=== PATIENT | male | born 1965 | race Hispanic/Latino ===

== ENCOUNTER 2017-09-16 15:49 | Outpatient (RCR) | payer BC ==
[~2017-09-16 15:49] MED LIST: ASPIRIN EC81 MG PO; ATORVASTATIN CA20 MG PO; COZAAR100 MG PO; K DUR10 MEQ PO; LOSARTAN-HCTZ1 EAC1; PLAVIX75 MG PO; Z.2.LOSARTAN-HCTZ1 E PO
== END 2017-09-22 ==
LOC: PT 15:49
PROVIDERS: ATTEND Specialist
DX: S43.431D Superior glenoid labrum lesion of right shoulder, subsequent encounter (principal); M25.511 Pain in right shoulder; M25.611 Stiffness of right shoulder, not elsewhere classified; M62.81 Muscle weakness (generalized)

== ENCOUNTER 2017-10-16 08:00 | Outpatient (RCR) | payer BC | END 2017-10-23 | LOC: PT 08:00 | PROVIDERS: ATTEND Specialist | DX: S43.431D Superior glenoid labrum lesion of right shoulder, subsequent encounter (principal); M25.511 Pain in right shoulder; M25.611 Stiffness of right shoulder, not elsewhere classified; M62.81 Muscle weakness (generalized) ==

== ENCOUNTER → 2017-11-24 | Day surgery (SDC) | payer BC ==
[2017-11-20 14:13] LABS: BASOPHILS # (AUTO) 0.1 (0.0-0.1); BASOPHILS % 0.9 % (0.0-1.0); EOSINOPHILS # (AUTO) 0.1 (0.0-0.4); EOSINOPHILS % 1.3 % (0.0-6.0); HEMATOCRIT 47.4 % (38.2-49.6); LYMPHOCYTES # (AUTO) 2.3 (1.0-3.2); LYMPHOCYTES % 27.9 % (18.0-39.1); MEAN CORPUSCULAR HEMOGLOBIN 26.4 pg (28-32); MEAN CORPUSCULAR HGB CONC 33.8 g/dL (31-35); MEAN CORPUSCULAR VOLUME 78.1 fL (81-99); MONOCYTES # (AUTO) 0.6 (0.2-0.8); MONOCYTES % 7.6 % (4.4-11.3); NEUTROPHILS # (AUTO) 5.1 (2.1-6.9); NEUTROPHILS % 62.1 % (38.7-80.0); PLATELET COUNT 202 x10e3/uL (140-360); RED BLOOD COUNT 6.07 x10e6/uL (4.3-5.7); RED CELL DISTRIBUTION WIDTH 12.6 % (11.7-14.4)
[2017-11-20 14:30] LABS: ANION GAP 15.4 mmol/L (8-16); BLOOD UREA NITROGEN 20 mg/dL (7-26); BUN/CREATININE RATIO 20 (6-25); CALCIUM 9.5 mg/dL (8.4-10.2); CARBON DIOXIDE 29 mmol/L (22-29); CHLORIDE 100 mmol/L (98-107); CREATININE, SERUM 1.02 mg/dL (0.72-1.25); EST GLOMERULAR FILTRATION RATE > 60 ML/MIN (60-); GLUCOSE 94 mg/dL (74-118); POTASSIUM 3.4 mmol/L (3.5-5.1); SODIUM 141 mmol/L (136-145)
[~2017-11-24] MED LIST changes: +BUPIVACAINE HCL 0.5% INJ 30 ML VIAL INJ ONE; +DEXAMETHASONE SOD PHOS INJ 4 MG/ML VIAL ONE; +EFFIENT10 MG PO; +EPHEDRINE SULFATE INJ 50 MG/10 ML SYR ONE; +EPINEPHRINE HCL INJ 1 MG/ML AMP ONE; +FENTANYL CITRATE/PF 100MCG/2 ML INJ ONE; +LIDOCAINE HCL 2% LOCAL INJ 5 ML SDV VIAL INJ ONE; +MIDAZOLAM HCL 2 MG/2 ML VIAL ONE; +ONDANSETRON HCL INJ 2 MG/ML VIAL ONE; +PROPOFOL IV EMULSION 10 MG/ML 20 ML VIAL ONE; +ROCURONIUM BROMIDE 10 MG/ML 5ML VIAL ONE; +SEVOFLURANE INHAL SOLN 250 ML PEN BTL ONE
[2017-11-24] MEDS: CEFAZOLIN SOD 1 GM VIAL ONE (10:04)
[2017-11-24 13:15] VITALS: BP 116/73
--- NOTE | 2017-11-24 14:20 | Operative Report ---
DATE OF PROCEDURE: November 24, 2017 SMELTING ENGINEER: Kb Martin PA-C The patient was brought to the operating room for induction of anesthesia. Throughout this case, my PA's assistance was necessary for retraction of soft tissue and positioning of the extremity. This allows for efficient and technically successful execution of the operation and is considered medically necessary. PREOPERATIVE DIAGNOSIS: Right shoulder labral tear. POSTOPERATIVE DIAGNOSIS: Right shoulder adhesive capsulitis. PROCEDURES 1. Right shoulder manipulation under anesthesia. 2. Arthroscopy. 3. Lysis of adhesions and subacromial decompression. INDICATIONS: The patient is a 52-year-old gentleman who has a long history of right shoulder pain. He has been treated with extensive conservative management. He continues to complain of pain and limited function. MRI shows a small labral tear. We have discussed the findings and options. The patient would like to proceed with more aggressive intervention. He has been through a left shoulder arthroscopy and had a good result. He states he understands the plan of care and wishes to proceed. DESCRIPTION OF PROCEDURE: The patient was brought to the operating room and placed under general anesthetic. He received a regional block and prophylactic antibiotics in the holding area. He was positioned in the beach chair position on the shoulder table. During positioning, it was noted that his shoulder had quite severely limited range of motion. I therefore performed a manipulation under anesthesia. There was profound release of the capsular tissue that was both visible and audible. A preoperative time out was performed. A standard posterior shoulder arthroscopy portal was established. As expected, there was a hemarthrosis. An anterior working portal was established in the rotator interval. The shoulder was thoroughly irrigated and the hemarthrosis was cleared. The articular surfaces of the glenohumeral joint were well preserved. The rotator cuff insertion was well preserved. The biceps tendon was intact. There was some hemorrhagic adhesions in the shoulder. A 4.5-mm shaver was introduced into the shoulder joint. The adhesions were debrided. The labrum was probed. The biceps tendon was stable at the supraglenoid tubercle. I did not see any significant tear of the posterior labrum when putting the scope into the anterior portal. The scope was then placed into the subacromial space. Extensive scar thickened bursa was debrided to visualize the bursal surface of the rotator cuff. There was a small partial thickness bursal surface tear of the anterior supraspinatus. This was gently debrided, but did not account for more than 20% of the thickness of the tendon. A subacromial bony decompression was performed. The subacromial space was opened up quite nicely. The arthroscopic instruments were then removed. All the incisions were closed with nylon stitches. A sterile bandage and an ultra sling were applied. The patient was extubated and transported to the recovery room in stable condition. Blood loss was about 20 mL. All needle and sponge counts were correct. Job#: [id number] DAX
== END | disposition home or self-care (01) ==
LOC: OR 08:48
PROVIDERS: ATTEND Specialist
DX: M75.111 Incomplete rotator cuff tear or rupture of right shoulder, not specified as traumatic (principal); S43.431A Superior glenoid labrum lesion of right shoulder, initial encounter; M75.01 Adhesive capsulitis of right shoulder; I10 Essential (primary) hypertension; N20.0 Calculus of kidney; X58.XXXA Exposure to other specified factors, initial encounter; Z01.810 Encounter for preprocedural cardiovascular examination; Z01.812 Encounter for preprocedural laboratory examination; Z79.82 Long term (current) use of aspirin; Z79.02 Long term (current) use of antithrombotics/antiplatelets; Z68.30 Body mass index [BMI] 30.0-30.9, adult; Z86.73 Personal history of transient ischemic attack (TIA), and cerebral infarction without residual deficits
CPT/HCPCS: 36415; 80048; 85025; 93005; J0171; J0690; J1100; J2001; J2250; J2405

== ENCOUNTER 2017-12-21 10:42 | Outpatient (RCR) | payer BC ==
[~2017-12-21 10:42] MED LIST changes: -BUPIVACAINE HCL 0.5% INJ 30 ML VIAL INJ ONE; -DEXAMETHASONE SOD PHOS INJ 4 MG/ML VIAL ONE; -EPHEDRINE SULFATE INJ 50 MG/10 ML SYR ONE; -EPINEPHRINE HCL INJ 1 MG/ML AMP ONE; -FENTANYL CITRATE/PF 100MCG/2 ML INJ ONE; -LIDOCAINE HCL 2% LOCAL INJ 5 ML SDV VIAL INJ ONE; -MIDAZOLAM HCL 2 MG/2 ML VIAL ONE; -ONDANSETRON HCL INJ 2 MG/ML VIAL ONE; -PROPOFOL IV EMULSION 10 MG/ML 20 ML VIAL ONE; -ROCURONIUM BROMIDE 10 MG/ML 5ML VIAL ONE; -SEVOFLURANE INHAL SOLN 250 ML PEN BTL ONE
== END 2017-12-23 ==
LOC: PT 10:42
PROVIDERS: ATTEND Specialist
DX: S43.431A Superior glenoid labrum lesion of right shoulder, initial encounter (principal); Z47.89 Encounter for other orthopedic aftercare; M75.41 Impingement syndrome of right shoulder; M25.511 Pain in right shoulder; M25.611 Stiffness of right shoulder, not elsewhere classified; M62.81 Muscle weakness (generalized)

== ENCOUNTER 2018-01-20 17:00 | Outpatient (RCR) | payer BC | END 2018-01-22 | LOC: PT 17:00 | PROVIDERS: ATTEND Specialist | DX: S43.431A Superior glenoid labrum lesion of right shoulder, initial encounter (principal); Z47.89 Encounter for other orthopedic aftercare; M75.41 Impingement syndrome of right shoulder; M25.511 Pain in right shoulder; M25.611 Stiffness of right shoulder, not elsewhere classified; M62.81 Muscle weakness (generalized) ==

== ENCOUNTER 2024-12-01 01:29 | Emergency (ER) | payer BC ==
[~2024-12-01] VITALS: Ht 170.2 cm; Wt 91.2 kg
[2024-12-01 01:34] VITALS: TEMP 97.9
[2024-12-01 01:48] LABS: BASOPHILS % 0.3 % (0.0-1.0); EOSINOPHILS % 2.1 % (0.0-6.0); LYMPHOCYTES % 21.4 % (18.0-39.1); MONOCYTES % 8.5 % (4.4-11.3); NEUTROPHILS % 67.2 % (38.7-80.0); RED CELL DISTRIBUTION WIDTH 13.0 % (11.7-14.4)
[2024-12-01 02:22] LABS: EST GLOMERULAR FILTRATION RATE 100.0 ML/MIN (>=60)
[2024-12-01] MEDS: HYDRALAZINE HCL 20 MG/ML VIAL IV STA (02:45)
[2024-12-01] MEDS ORDERED: IOPAMIDOL 370 MG/ML 100 ML INFUS..BTL INJ ONE (02:56)
[2024-12-01 04:00] VITALS: PULSE 84; RESP 16
[2024-12-01 05:07] VITALS: BP 144/87; PULSE 82; RESP 20; O2SAT 96
== END 2024-12-01 04:40 | disposition other institution (70) ==
LOC: ER 01:44
DX: R07.89 Other chest pain (principal); J90 Pleural effusion, not elsewhere classified; I16.0 Hypertensive urgency; Z95.1 Presence of aortocoronary bypass graft
CPT/HCPCS: 36415; 71045; 71260; 80053; 82550; 83690; 83880; 84484; 85025; 93005; 99284; J0360; Q9967

== ENCOUNTER 2024-12-15 16:20 | Observation (INO) | payer BC ==
[~2024-12-15] VITALS: Ht 167.6 cm; Wt 85.7 kg
[2024-12-15 18:20] VITALS: TEMP 97.8
[2024-12-15 19:36] LABS: BASOPHILS % 0.3 % (0.0-1.0); EOSINOPHILS % 0.3 % (0.0-6.0); LYMPHOCYTES % 8.0 % (18.0-39.1); MONOCYTES % 6.1 % (4.4-11.3); NEUTROPHILS % 85.0 % (38.7-80.0); RED CELL DISTRIBUTION WIDTH 13.8 % (11.7-14.4)
[2024-12-15 19:57] LABS: EST GLOMERULAR FILTRATION RATE 74.0 ML/MIN (>=60)
[2024-12-15 20:00] VITALS: PULSE 63; RESP 18
[2024-12-15 20:10] VITALS: PULSE 76; RESP 18; O2SAT 98
[2024-12-15] MEDS ORDERED: ONDANSETRON HCL INJ 2MG/ML 2ML 2 MG/ML VIAL IV PRN (21:45)
[2024-12-15] MEDS ORDERED: SODIUM CHLORIDE FLUSH 10 ML SYR INJ PRN (21:45)
[2024-12-15 22:11] VITALS: BP 153/94; PULSE 102; RESP 18; TEMP 98; O2SAT 100
[2024-12-15 22:54] VITALS: BP 153/94; PULSE 102; RESP 18; TEMP 98; O2SAT 100
[2024-12-16] VITALS (10 sets, daily range): BP systolic 123–153; BP diastolic 77–94; PULSE 72–102; RESP 17–18; TEMP 97.5–98; O2SAT 96–100
[2024-12-16] MEDS ORDERED: amlodipine PO (00:04)
[2024-12-16] MEDS ORDERED: CLOPIDOGREL75 MG PO (00:06)
[2024-12-16] MEDS ORDERED: AMBIEN5 MG PO (00:06)
[2024-12-16] MEDS ORDERED: FLOMAX0.4 MG PO (00:06)
[2024-12-16] MEDS ORDERED: METOPROLOL SUCC25 MG PO (00:06)
[2024-12-16] MEDS ORDERED: POTASSIUM CHLO10 ME1 PO (06:20)
[2024-12-16] MEDS ORDERED: MULTI-VITAMIN1 EACH PO (06:20)
[2024-12-16] MEDS ORDERED: CRESTOR40 MG PO (06:20)
[2024-12-16 06:56] LABS: CHOL/HDL RATIO 3.8 (3.9-4.7); LDL CHOLESTEROL 69.0 MG/DL (60-130)
[2024-12-16] MEDS ORDERED: ZOLPIDEM TARTRATE 5 MG TAB PO PRN (08:30)
[2024-12-16] MEDS: TAMSULOSIN HCL 0.4 MG CAP PO SCH (09:20)
[2024-12-16] MEDS: CLOPIDOGREL BISULFATE 75 MG TAB PO SCH (09:20)
[2024-12-16] MEDS: ASPIRIN 81 MG CHEW TAB PO ONE (09:24)
[2024-12-16] MEDS: CRESTOR 10MG PO SCH (21:08)
[2024-12-16] MEDS: AMLODIPINE BESYLATE 10 MG TAB PO SCH (21:09)
[2024-12-17] VITALS (7 sets, daily range): BP systolic 114–134; BP diastolic 83–91; PULSE 86–106; RESP 20; TEMP 98–98.5; O2SAT 98–100
[2024-12-17] MEDS: ASPIRIN 81 MG ENTERIC COATED PO SCH (08:50)
[2024-12-17] MEDS: METOPROLOL SUCCINATE 25 MG TAB XL PO SCH (08:50)
[2024-12-17] MEDS: LOSARTAN POTASSIUM 25 MG TAB PO SCH (08:51)
[2024-12-17] MEDS ORDERED: COZAAR25 MG PO (12:24)
== END 2024-12-17 14:00 | disposition home or self-care (01) ==
LOC: ER 19:35 → ERHOLD 21:40 → MED/SURG3 22:24
PROVIDERS: ADMIT Internal Medicine; ATTEND Internal Medicine
DX: R55 Syncope and collapse (principal); I25.10 Atherosclerotic heart disease of native coronary artery without angina pectoris; I10 Essential (primary) hypertension; E78.5 Hyperlipidemia, unspecified; Z95.1 Presence of aortocoronary bypass graft; D64.9 Anemia, unspecified
CPT/HCPCS: 36415 ×2; 70450; 71045; 80053; 80061; 82550; 84484 ×2; 85025; 93005; 93306; 94799 ×2; 99284; G0378 ×3